=== PATIENT | female | born 1955 | race Caucasian/White ===

== ENCOUNTER 2022-10-02 07:05 | Day surgery (SDC) | payer MEDICARE ==
[~2022-10-02] VITALS: Ht 160 cm; Wt 85.7 kg
[~2022-10-02 07:05] MED LIST: Prinivil10 MG PO
--- NOTE | 2022-10-02 07:33 | NUR ---
PT REPORTS HALLUCINATIONS FOLLOWING HYSTERECTOMY PROCEDURE
[2022-10-02] MEDS ORDERED: MONT10T (07:35)
[2022-10-02] MEDS ORDERED: Ventolin/Prove6.7 GM INH (07:36)
[2022-10-02] MEDS ORDERED: HYDCOR2.5C (07:36)
[2022-10-02] MEDS ORDERED: CYCL10 PO (07:36)
--- NOTE | 2022-10-02 07:47 | NUR ---
10/02/22 0747 Adrienne Martin AT 0740 PLEGAYLEET AT 0725
[2022-10-02 09:20] VITALS: BP 157/86
--- NOTE | 2022-10-02 09:23 | NUR ---
10/02/22 0923 Mitchell Ortiz IV REMOVED. SITE WNL.
== END 2022-10-02 09:15 | disposition home or self-care (01) ==
LOC: ORSCSDS 07:05
PROVIDERS: Ophthalmology
PROC: 08DK3ZZ Extraction of Left Lens, Percutaneous Approach (ICD-10-PCS; principal; 2022-10-02 08:30)
DX: H25.12 Age-related nuclear cataract, left eye (principal); I10 Essential (primary) hypertension; Z79.899 Other long term (current) drug therapy
CPT/HCPCS: A9270; J2001; J2250; J3010; J3301; J7040; V2632